=== PATIENT | female | born 1975 | race Caucasian/White ===

== ENCOUNTER → 2017-11-24 | Outpatient (CLI) | payer OTHER | LOC: FIMAGING 08:52 | DX: Z12.31 Encounter for screening mammogram for malignant neoplasm of breast (principal) ==

== ENCOUNTER 2018-03-29 16:10 | Emergency (ER) | payer OTHER ==
--- NOTE | 2018-03-29 16:20 | EDPHY ---
H & P Stated Complaint: GOING THROUGH IVF/CHEST TIGHTNESS/SOB SENT FROM Time Seen by Provider: 03/29/18 16:20 HPI/ROS: CHIEF COMPLAINT: Dyspnea HISTORY OF PRESENT ILLNESS: The patient presents the ED with several days of dyspnea. The patient is currently undergoing hyperstimulation for in vitro fertilization. She is approximately 5 days into the therapy cycle. The patient denies any asymmetric calf pain or swelling. The patient denies fever, cough or congestion. She does complain of palpitations. She states that her dyspnea is worsened with exertion. She denies any additional acute complaints. REVIEW OF SYSTEMS: A comprehensive 10 point review of systems is otherwise negative aside from elements mentioned in the history of present illness. Source: Patient - Personal History LMP (Females 10-55): 1-7 Days Ago Current Tetanus/Diphtheria Vaccine: Yes - Medical/Surgical History Hx Asthma: No Hx Chronic Respiratory Disease: No Hx Diabetes: No Hx Cardiac Disease: No Hx Renal Disease: No Hx Cirrhosis: No Hx Alcoholism: No Hx HIV/AIDS: No Other PMH: foot surgery. - Social History Smoking Status: Never smoked - Physical Exam Exam: General Appearance: Alert, no distress Eyes: Pupils equal and round no pallor or injection ENT, Mouth: Mucous membranes moist Respiratory: There are no retractions, lungs are clear to auscultation, no clinical evidence of effusion Cardiovascular: Regular rate and rhythm Gastrointestinal: Abdomen is soft and nontender, no masses, bowel sounds normal Neurological: 5/5 strength all 4 extremities Skin: Warm and dry, no rashes Musculoskeletal: Neck is supple nontender Extremities: symmetrical, full range of motion, no asymmetric calf pain or swelling Constitutional: Initial Vital Signs Temperature (C) 36.7 C 03/29/18 16:15 Heart Rate 67 03/29/18 16:15 Respiratory Rate 18 03/29/18 16:15 Blood Pressure 125/72 H 03/29/18 16:15 O2 Sat (%) 98 03/29/18 16:15 O2 Delivery Mode Room Air Allergies/Adverse Reactions: No Known Allergies Allergy (Verified 03/29/18 16:14) Home Medications: Medication Instructions Recorded Ivf Meds 03/29/18 Medical Decision Making - Diagnostics EKG Interpretation: EKG: Complete interpretation has been separately recorded in the [email or web address] archive. Summary impression: Sinus rhythm, rate 72 Imaging Results: Imaging Impressions Chest X-Ray 03/29/18 16:29 Impression: Suspect airways disease. No pneumonia. ED Course/Re-evaluation: The patient presents the emergency department for evaluation of dyspnea and palpitations in the setting of hyperstimulation therapy for in vitro fertilization. The patient was noted to be in no acute distress upon arrival. Her EKG demonstrates no evidence of ischemia. She has no arrhythmia. She has no hypoxemia. The patient's chest x-ray demonstrates no evidence of a pleural effusion. The patient's D-dimer is negative which I feel adequately excludes pulmonary embolism in this low risk by Wells criteria patient. This point time I do feel the patient can be discharged home as she has no evidence of hyperstimulation syndrome or venous thromboembolism. The patient has been instructed to follow up with her primary care provider and torpedo shooter as scheduled. She is advised to return to the ED for markedly worsening symptoms or other concerns. Differential Diagnosis: Differential diagnosis considered includes ovarian hyperstimulation syndrome, pulmonary embolism, pleural effusion, cardiac arrhythmia, anemia, metabolic abnormality - Data Points Laboratory Results: Laboratory Results 03/29/18 16:50 03/29/18 16:50 03/29/18 03/29/18 03/29/18 16:50 16:50 16:50 WBC 10.11 10^3/uL H 10^3/uL (3.80-9.50) RBC 4.57 10^6/uL 10^6/uL (4.18-5.33) Hgb 14.9 g/dL g/dL (12.6-16.3) Hct 42.9 % % (38.0-47.0) MCV 93.9 fL fL (81.5-99.8) MCH 32.6 pg pg (27.9-34.1) MCHC 34.7 g/dL g/dL (32.4-36.7) RDW 12.3 % % (11.5-15.2) Plt Count 260 10^3/uL 10^3/uL (150-400) MPV 9.2 fL fL (8.7-11.7) Neut % (Auto) 65.8 % % (39.3-74.2) Lymph % (Auto) 25.7 % % (15.0-45.0) [place] % (Auto) 6.4 % % (4.5-13.0) Eos % (Auto) 1.6 % % (0.6-7.6) Baso % (Auto) 0.4 % % (0.3-1.7) Nucleat RBC Rel Count 0.0 % % (0.0-0.2) Absolute Neuts (auto) 6.65 10^3/uL H 10^3/uL (1.70-6.50) Absolute Lymphs (auto) 2.60 10^3/uL 10^3/uL (1.00-3.00) Absolute Monos (auto) 0.65 10^3/uL 10^3/uL (0.30-0.80) Absolute Eos (auto) 0.16 10^3/uL 10^3/uL (0.03-0.40) Absolute Basos (auto) 0.04 10^3/uL 10^3/uL (0.02-0.10) Absolute Nucleated RBC 0.00 10^3/uL 10^3/uL (0-0.01) Immature Gran % 0.1 % % (0.0-1.1) Immature Gran # 0.01 10^3/uL 10^3/uL (0.00-0.10) D-Dimer < 0.27 ug/mLFEU ug/mLFEU (0.00-0.50) Sodium 139 mEq/L mEq/L (135-145) Potassium 3.8 mEq/L mEq/L (3.3-5.0) Chloride 102 mEq/L mEq/L (97-110) Carbon Dioxide 24 mEq/l mEq/l (22-31) Anion Gap 13 mEq/L mEq/L (8-16) BUN 8 mg/dL mg/dL (7-23) Creatinine 0.8 mg/dL mg/dL (0.6-1.0) Estimated GFR > 60 Glucose 112 mg/dL H mg/dL (70-100) Calcium 9.3 mg/dL mg/dL (8.5-10.4) Troponin I < 0.012 ng/mL ng/mL (0.000-0.034) Departure - Departure Disposition: Home, Routine, Self-Care Clinical Impression: Palpitations, Dyspnea Condition: Good Instructions: Heart Palpitations (ED) Additional Instructions: 1. The workup in the emergency department today demonstrates no significant abnormality or evidence of a blood clot. 2. Please follow up with your torpedo shooter as scheduled. 3. Please return to the ED for markedly worsening symptoms or other concerns. Referrals: Deb Moore MD [Primary Care Provider] - As per Instructions
--- NOTE | 2018-03-29 16:54 | CPEKG ---
Heart Rate: 72 RR Interval: 833 P-R Interval: 164 QRSD Interval: 78 QT Interval: 404 QTC Interval: 443 P Barling: 67 QRS Barling: 64 T Wave Barling: 41 EKG Severity - NORMAL ECG - EKG Impression: SINUS RHYTHM Electronically Signed By: Konrad Jones 29-Mar-2018 17:23:51
[2018-03-29 17:13] LABS: PLATELET COUNT 260 10^3/uL (150-400)
[2018-03-29 18:02] VITALS: BP 122/62
== END 2018-03-29 18:09 | disposition home or self-care (01) ==
DX: R06.00 Dyspnea, unspecified (principal); R00.2 Palpitations

== ENCOUNTER → 2018-12-17 | Outpatient (CLI) | payer OTHER | LOC: FIMAGING 12:36 | DX: Z12.31 Encounter for screening mammogram for malignant neoplasm of breast (principal) ==